=== PATIENT | male | born 1935 | race Caucasian/White ===

== ENCOUNTER 2018-07-15 09:37 | Emergency (ER) | payer OTHER ==
[~2018-07-15] VITALS: Ht 188 cm; Wt 81.6 kg
[~2018-07-15 09:37] MED LIST: PROSTATE; ZOLP-158
[2018-07-15] MEDS ORDERED: KETOROLAC TROMETH 60MG/2ML VIAL IM ONE (10:30)
[2018-07-15] MEDS ORDERED: ACETAMINOPHEN 325 MG TAB PO ONE ×2 (12:38→12:45)
[2018-07-15 13:13] LABS: Urine Bacteria NONE SEEN /hpf (None Seen); Urine Blood Negative /uL (Negative); Urine Hyaline Cast FEW /lpf (0 - 2); Urine Mucus FEW (None Seen); Urine Specific Gravity 1.013 (1.001-1.035); Urine WBC 1 /hpf (0 - 3)
[2018-07-15 13:30] VITALS: BP 164/92
== END 2018-07-15 14:25 | disposition home or self-care (01) ==
LOC: EDBD 09:37 → ER 09:43
DX: M16.11 Unilateral primary osteoarthritis, right hip (principal); I25.10 Atherosclerotic heart disease of native coronary artery without angina pectoris; E78.5 Hyperlipidemia, unspecified; M79.604 Pain in right leg
CPT/HCPCS: 73502; 81001; 93005